=== PATIENT | male | born 1955 | race Caucasian/White ===

== ENCOUNTER 2020-10-05 14:54 | Emergency (ER) | payer MEDICARE, SELFPAY ==
[2020-10-05 15:06] VITALS: BP 141/70; PULSE 83; RESP 16; TEMP 36.7; O2SAT 98
[2020-10-05 15:08] VITALS: BP 141/70; PULSE 83; RESP 16; TEMP 36.7; O2SAT 98
[2020-10-05] MEDS: LIDOCAINE, EPINEPHRINE, TETRACAINE VISCOUS SOLN 3 ML TOPICAL (15:11)
--- NOTE | 2020-10-05 15:39 | ED.WOUNDLAC ---
HPI - Wound/Laceration General Chief Complaint: Wound/Laceration Stated Complaint: finger laceration Source: patient and RN notes reviewed Limitations: no limitations History of Present Illness HPI narrative: The right-handed retiree , previous mostly healthy and tetanus status uncertain, presents with finger laceration/avulsion. Patient states he was doing yard work with a manual clipper and sustained a avulsion/superficial laceration of his left small finger. This is mild pain and bleeding that is worse with motion, better with rest or compression. No deformity Related Data Allergies Allergy/AdvReac Type Severity Reaction Status Date / Time No Known Allergies Allergy Unknown Verified 11/12/07 16:21 Review of Systems Review of Systems: Narrative: The patient has been informed that they may have pre-hypertension or Hypertension based on a BP reading in the department. I recommend that the patient call the primary care provider listed on their discharge instructions or a physician of their choice this week to arrange follow up for further evaluation of possible pre-hypertension or Hypertension General/Constitutional: No weight loss,fever Eyes: N0: Redness,discharge Ears/Nose/Throat: No: Epistaxis,ear discharge Respiratory: Denies: Hemoptysis Gastrointestinal: No Vomiting, Bleeding-rectal Skin: No Lumps, eruption Neurologic: No Focal Weakness,Sz Hematologic: Denies: Petechiae/Purpura Psychiatric: No: Suicida ideationl All Other Systems: Reviewed and Negative PMFSH Comments At time of signature, agree with nursing past medical, surgical, social and family history. There is no relevant family history pertinent to the presenting complaint Exam Narrative: Exam Narrative: General Appearance: Well appearing, conjunctiva clear Mouth/Throat: Normal appearing, Normal lips, Supple Respiratory: Airway patent, No respiratory distress MS-finger l: Normal strength (mostly intact, limited flexion/extension by pain), Tenderness ( laterally, with mild decreased ROM), no swelling Other (no anterior drawer, no collateral laxity, Skin : Linear, 2.5 cm avulsion/superficial laceration of the distal fifth fingertip, ulnar aspect ; warm, Dry, Normal color Neurological: A&O x3, Speech clear, CN II-XII intact Psychiatric: Normal mood, Normal affect Course Vital Signs Vital signs: Vital Signs Temperature 98.1 F 10/05/20 15:06 Pulse Rate 83 10/05/20 15:06 Respiratory Rate 16 10/05/20 15:06 Blood Pressure 141/70 H 10/05/20 15:06 Pulse Oximetry 98 10/05/20 15:06 Temperature 98.1 F 10/05/20 15:08 Pulse Rate 83 10/05/20 15:08 Respiratory Rate 16 10/05/20 15:08 Blood Pressure 141/70 H 10/05/20 15:08 Pulse Oximetry 98 10/05/20 15:08 Procedures Laceration Laceration 1: Date: 10/05/20 Site: hand Side (If applicable): left Size (cm): 2.5 Description: linear Depth: simple, single layer ====== Skin Level ====== Skin layer closed with: dermabond and steri strips ====== Subcutaneous Layer ====== ====== Muscle Layer ====== ====== Tendon Layer ====== Discharge Plan Discharge Clinical Impression: Avulsion of skin Patient Disposition: Home, Self-Care Condition: Improved Instructions: Skin Adhesive Care (ED) Additional Instructions: Begin skin ointment over the weekend Butterfly bandage after Steri-Strips fall off Prescriptions: New mupirocin 2 % ointment 1 applic TOPICAL TID Qty: 30 RF: 0 Follow-up/Referrals: PHYSICIAN NOT ON STAFF,NONSTAFF [Primary Care Provider] -
--- NOTE | 2020-10-05 16:01 | PC.NURSE ---
Unable to scan boostrix. Med shows up in orders but does not cross to med pyxis or MAR. Overrode med and administered to patient
[2020-10-05] MEDS: TETANUS,DIPHTHERIA,AC PERTUSSIS ADULT (0.5 ML) BOOSTRIX IM (16:21)
== END 2020-10-05 15:37 | disposition home or self-care (01) ==
PROVIDERS: Emergency Provider Emergency Medicine
DX: S61.217A Laceration without foreign body of left little finger without damage to nail, initial encounter (principal); W27.8XXA Contact with other nonpowered hand tool, initial encounter; Z23 Encounter for immunization
CPT/HCPCS: 12001; 90471; 90715; 99213; G0463

== ENCOUNTER 2021-10-05 12:01 | Emergency (ER) | payer MEDICARE, SELFPAY ==
--- NOTE | ~2021-10-05 | XR_ITS ---
[XR ribs RT 2V ] INDICATION: Right rib pain after recent fall TECHNIQUE: Frontal projection of the upper right ribs, frontal projection of the lower right ribs, ob lique projection of all the right ribs, frontal inspiratory chest x-ray for interpretation. FINDINGS: There is an acute right nondisplaced 10th rib fracture. No other rib fracture is identified . No pneumothorax. Right lung clear. There are no soft tissue abnormality seen. The lungs are clear. IMPRESSION: 1: Acute nondisplaced right 10th rib fracture. Reviewed, dictated and finalized at location A.
[2021-10-05 12:14] VITALS: BP 170/80; PULSE 71; RESP 16; TEMP 36.9; O2SAT 98
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
== END 2021-10-05 13:18 | disposition home or self-care (01) ==
PROVIDERS: Emergency Provider Nurse Practitioner Family
DX: S22.31XA Fracture of one rib, right side, initial encounter for closed fracture (principal); V92.09XA Drowning and submersion due to fall off unspecified watercraft, initial encounter
CPT/HCPCS: 71100; 99213; G0463

== ENCOUNTER 2022-01-24 11:32 | Emergency (ER) | payer MEDICARE, SELFPAY ==
[2022-01-24 11:43] VITALS: BP 168/85; PULSE 66; RESP 16; TEMP 36.9; O2SAT 100
--- NOTE | 2022-01-24 12:00 | ED.URI ---
HPI - URI/Sore Throat General Chief Complaint: Upper Respiratory Infection Stated Complaint: COLD/CONGESTION/HEADACHE Time Seen by Provider: 01/24/22 12:00 Source: patient and RN notes reviewed Mode of arrival: ambulatory Limitations: no limitations History of Present Illness HPI Narrative: 66 y/o male presents for complaints of head congestion, sinus pressure, and coughing up phlegm for 10 days. He states that he is unable to sleep d/t s/s. Denies fevers, chills, N/V/D, otalgia, sore throat, CP, SOB, palpitations, wheezing. Patient states that his has been sick with the same thing, but has not sought out medical care. Patient has attempted Mucinex, Theraflu, and NyQuil without relief. Patient reports that his PCP called in Amoxicillin 125 mg and he is worried that he needs something stronger. MD elicited complaint: cough Related Data Home Medications Medication Instructions Recorded Confirmed amoxicillin 875 mg-potassium 1 tablet PO BID 01/24/22 01/24/22 clavulanate 125 mg tablet Allergies Allergy/AdvReac Type Severity Reaction Status Date / Time No Known Allergies Allergy Unknown Verified 01/24/22 11:41 Review of Systems Review of Systems: ROS per HPI Exam Narrative: GENERAL: Ill-appearing, nontoxic no acute distress. HEAD: Normocephalic EYES: PERRLA, conjunctivae clear ENT: Mucous membranes moist. TM pearly guo with light reflex bilaterally; no tragal tenderness. Oropharynx pink and moist without lesions or exudate, no drooling, no hoarseness, no trismus, uvula midline. No tripod positioning, muffled voice, soft palate or pharyngeal wall bulging NECK: Supple. No lymphadenopathy CHEST: Clear to auscultation, breath sounds equal. No wheezing, rhonchi, rales, or stridor. No respiratory distress, speaks in full sentences. HEART: Regular rate and rhythm. No murmur heard. SKIN: Warm, dry, no rash. NEURO: Alert and oriented x3. PSYCH: Normal mood and affect Course Course Emergency Course: Patient is aware of diagnosis, understands and agrees to treatment plan. Anticipatory guidance given. Patient agrees to follow-up as directed and is aware of reasons to seek care at the emergency department. Portions of this record may have been created with voice recognition software Level of Care: Express Care Visit Vital Signs Vital signs: Vital Signs Temperature 98.4 F 01/24/22 11:43 Pulse Rate 66 01/24/22 11:43 Respiratory Rate 16 01/24/22 11:43 Blood Pressure 168/85 H 01/24/22 11:43 Pulse Oximetry 100 01/24/22 11:43 Temperature 98.4 F 01/24/22 11:43 Pulse Rate 66 01/24/22 11:43 Respiratory Rate 16 01/24/22 11:43 Blood Pressure 168/85 H 01/24/22 11:43 Pulse Oximetry 100 01/24/22 11:43 reviewed MDM - URI/Sore Throat MDM Narrative Medical decision making narrative: Advised supportive measures and signs/symptoms to go to the ER. Pt is appropriate for outpt treatment and f/u. Prescription from PCP clarified and patient is receiving Augmentin. Patient educated on difference between Amoxicillin and Augmentin. Patient verbalizes understanding and is agreeable to the current plan. Differential Diagnosis Differential diagnosis: Likely upper respiratory infection, sinusitis and viral infection Discharge Plan Discharge Clinical Impression: Sinusitis Qualifiers: Sinusitis location: unspecified location Chronicity: acute Recurrence: non-recurrent Qualified Code(s): J01.90 - Acute sinusitis, unspecified Patient Disposition: Home, Self-Care Condition: Stable Instructions: Antibiotic Form, Sinusitis (ED) Additional Instructions: Recommend Flonase spray and Zyrtec (or Claritin/Lisy), saline nasal spray over the counter Cough syrup may cause drowsiness; avoid driving or take it at night time. Tylenol 1000mg every 8 hours as needed for pain/fever Symptomatic treatment includes: rest, fluids, and increase humidity of the air at home. Follow up with your primary
== END 2022-01-24 12:18 | disposition home or self-care (01) ==
PROVIDERS: Emergency Provider Nurse Practitioner Family
DX: J01.90 Acute sinusitis, unspecified (principal)
CPT/HCPCS: 99211; G0463

== ENCOUNTER 2022-02-26 11:28 | Emergency (ER) | payer MEDICARE, SELFPAY ==
--- NOTE | 2022-02-26 11:33 | ED.WOUNDLAC ---
HPI - Wound/Laceration General Chief Complaint: Wound/Laceration Stated Complaint: FINGER LACERATION Time Seen by Provider: 02/26/22 11:33 Source: patient and RN notes reviewed History of Present Illness HPI narrative: Patient is a 66-year-old male who presents to urgent care with complaints of a laceration to the left index finger. Patient states that it occurred approximately 30 minutes prior to arrival while using a drill. Patient is right handed and the drill slipped into his left finger. Patient is up-to-date on tetanus. No other acute complaints or injuries. No acute distress noted. Patient aware care. Some parts of this dictation were generated by voice recognition software and may contain typographical and/or grammatical inaccuracies. Related Data Home Medications Medication Instructions Recorded Confirmed atorvastatin 20 mg tablet 20 mg PO DAILY 02/26/22 02/26/22 Allergies Allergy/AdvReac Type Severity Reaction Status Date / Time No Known Allergies Allergy Unknown Verified 01/24/22 11:41 Review of Systems Review of Systems: CONSTITUTIONAL: Denies fever, chills, or sweats. EYES: Denies visual changes, redness, or discharge. ENT: Denies rhinorrhea, congestion, sore throat, or otalgia. CARDIOVASCULAR: Denies chest pain, palpitations, or edema. RESPIRATORY: Denies cough or dyspnea. GASTROINTESTINAL: Denies abdominal pain, nausea, vomiting, or diarrhea. GENITOURINARY: Denies dysuria or hematuria. SKIN: Reports of left index finger laceration MUSCULOSKELETAL: Denies back pain, joint pain, or myalgia. NEUROLOGIC: Denies headache, numbness, or weakness. All other systems reviewed are negative, except as documented in HPI. PMFSH Comments At the time of my signature, I reviewed and agree with the nursing past medical, surgical, social, and family history. There is no relevant family history pertinent to the patient complaint. Exam Narrative: GENERAL: This is a well-nourished, well-developed patient, in no apparent distress. HEAD: normocephalic, atraumatic. EYES: PERRL. Sclera clear/white. Vision is grossly intact. EARS: External ears normal NOSE: External nose normal with no obvious nasal discharge, nares without redness, no rhinorrhea. THROAT: Mucous membranes moist NECK: Neck supple RESPIRATORY: Clear to auscultation. Breath sounds equal bilaterally. No wheezes, rales, or rhonchi. SKIN: 1.5 cm skin avulsion with flap to the radial aspect of the tuft of the left index finger not involving the nail NEURO: awake, alert, and oriented to person, place and time. There were no obvious focal neurologic abnormalities. EXTREMITIES: Positive strong left radial pulse with capillary refill less than 2 seconds. Range of motion left upper extremity/affected left index finger within normal limits. Course Course Level of Care: Express Care Visit Vital Signs Vital signs: Vital Signs Temperature 97.0 F L 02/26/22 11:35 Pulse Rate 65 02/26/22 11:35 Respiratory Rate 18 02/26/22 11:35 Blood Pressure 141/97 H 02/26/22 11:35 Pulse Oximetry 100 02/26/22 11:35 Oxygen Delivery Room Air 02/26/22 11:35 Temperature 97.0 F L 02/26/22 11:35 Pulse Rate 65 02/26/22 11:35 Respiratory Rate 18 02/26/22 11:35 Blood Pressure 141/97 H 02/26/22 11:35 Pulse Oximetry 100 02/26/22 11:35 Oxygen Delivery Room Air 02/26/22 11:35 Reviewed- Patient is informed that they may have pre-hypertension or hypertension based on a blood pressure reading in the department. I recommend the patient call the primary care provider listed on their discharge instructions or a physician of their choice this week to arrange follow-up for further evaluation of possible pre-hypertension or hypertension. Procedures Other Procedure Procedure 1: Other Procedure: Due to the lack of depth of the skin avulsion/flap-unable to suture. Cleanse/irrigated wound with technicare and normal saline. Applied Surgicel to the skin avu
[2022-02-26 11:35] VITALS: BP 141/97; PULSE 65; RESP 18; TEMP 36.1; O2SAT 100
== END 2022-02-26 11:59 | disposition home or self-care (01) ==
PROVIDERS: Emergency Provider Nurse Practitioner Family
DX: S61.211A Laceration without foreign body of left index finger without damage to nail, initial encounter (principal); W29.8XXA Contact with other powered hand tools and household machinery, initial encounter
CPT/HCPCS: 99212; G0463